=== PATIENT | female | born 1985 | race Caucasian/White ===

== ENCOUNTER → 2016-10-04 | Outpatient (REF) | payer OTHER ==
[~2016-10-04] MED LIST: AMBI5TAB; CIPR500T19
== END ==
LOC: M SFHCLERA 16:48
PROVIDERS: ATTEND Physician Assistant Medical
DX: N30.00 Acute cystitis without hematuria (principal)

== ENCOUNTER → 2017-06-18 | Outpatient (REF) | payer OTHER | LOC: M SFHCLERA 20:23 | DX: R30.0 Dysuria (principal); J02.9 Acute pharyngitis, unspecified ==

== ENCOUNTER → 2017-12-19 | Outpatient (REF) | payer OTHER ==
[2017-12-20 14:41] LABS: CHLAMYDIA DNA AMPLIFICATION NEGATIVE (NEGATIVE); GC DNA AMPLIFICATION NEGATIVE (NEGATIVE)
== END ==
LOC: M SFHCLERA 18:51
DX: R30.0 Dysuria (principal)

== ENCOUNTER → 2018-01-12 | Outpatient (REF) | payer OTHER, MEDICAID ==
[2018-01-12 20:22] LABS: BASO % 0.6 % (0.0-1.0); EOS # 0.2 10^3/uL (0.0-0.50); EOS % 2.7 % (0.0-3.0); HEMATOCRIT 40.8 % (36.0-47.0); HEMOGLOBIN 13.2 g/dl (12.0-15.5); IMMATURE GRANULOCYTE % 0.2 % (0-3.0); LYMPH # 2.7 10^3/uL (1.5-4.5); LYMPH % 42.7 % (24.0-44.0); MEAN CORPUSCULAR HGB CONC 32.4 g/dl (32.0-36.5); MEAN CORPUSCULAR VOLUME 89.7 fl (80.0-96.0); MONO # 0.2 10^3/uL (0.0-0.8); MONO % 3.8 % (0.0-5.0); NEUTROPHILS # 3.2 10^3/uL (1.8-7.7); PLATELET COUNT, AUTOMATED 220 10^3/uL (150-450); RED BLOOD COUNT 4.55 10^6/uL (4.00-5.40); RED CELL DISTRIBUTION WIDTH 13.6 % (11.5-14.5); WHITE BLOOD COUNT 6.3 10^3/uL (4.0-10.0)
[2018-01-12 20:33] LABS: ALBUMIN 3.5 GM/DL (3.2-5.2); ALBUMIN/GLOBULIN RATIO 0.97 (1.00-1.93); ALKALINE PHOSPHATASE 84 U/L (45-117); ALT/SGPT 48 U/L (12-78); ANION GAP 7 MEQ/L (8-16); AST/SGOT 36 U/L (7-37); BILIRUBIN,TOTAL 0.3 MG/DL (0.2-1.0); BLOOD UREA NITROGEN 12 MG/DL (7-18); CALCIUM LEVEL 8.1 MG/DL (8.5-10.1); CARBON DIOXIDE LEVEL 28 MEQ/L (21-32); CHLORIDE LEVEL 105 MEQ/L (98-107); CREATININE FOR GFR 0.77 MG/DL (0.55-1.30); GLOMERULAR FILTRATION RATE > 60.0 (>60); GLUCOSE, FASTING 124 MG/DL (70-100); POTASSIUM SERUM 4.1 MEQ/L (3.5-5.1); SODIUM LEVEL 140 MEQ/L (136-145); TOTAL PROTEIN 7.1 GM/DL (6.4-8.2)
[2018-01-14 10:39] LABS: HEPATITIS B SURFACE ANTIBODY POSITIVE (POSITIVE)
[2018-01-14 10:50] LABS: HEPATITIS B SURFACE ANTIGEN NEGATIVE (NEGATIVE)
[2018-01-14 11:26] LABS: HEPATITIS C VIRUS ABY INDEX > 11.0 INDEX (<0.8)
[2018-01-18 12:24] LABS: HCV RNA NAA QUALITATIVE Positive (Negative)
[2018-01-19 00:11] LABS: HEPATITIS C QUANTITATION 38630 IU/mL (.); HEPATITIS C VIRUS GENOTYPE 3 (.)
== END ==
LOC: M LAB REF 09:53
DX: B17.10 Acute hepatitis C without hepatic coma (principal)
CPT/HCPCS: 80053

== ENCOUNTER → 2019-09-19 | Outpatient (CLI) | payer OTHER | LOC: M LRY 11:33 | PROVIDERS: ATTEND Nurse Practitioner Family | DX: Z36.89 Encounter for other specified antenatal screening (principal); Z53.9 Procedure and treatment not carried out, unspecified reason ==

== ENCOUNTER → 2019-10-04 | Outpatient (CLI) | payer OTHER ==
--- NOTE | 2019-10-05 02:35 | REP ---
REASON: Supervision of other normal . Multiple ultrasonographic images of the gravid uterus show a single living intrauterine gestation in the oblique superior head to maternal right position. The placenta is posterior fundal and not low lying. The subjective amniotic fluid volume is within normal limits. The cervix measures 3.9 cm in length and is closed. Doppler interrogation of the heart shows a heart rate of 147 beats per minute. Evaluation of the maternal adnexal spaces shows no abnormalities. CHART: BPD 3.6 cm = 17 weeks 1 day HC 13.5 cm = 17 weeks 0 days AC 12.1 cm = 17 weeks 5 days FL 2.4 cm = 17 weeks 1 day The estimated weight is 193 grams, which is at the 57th percentile for a 17-week 1-day gestational age. Due to the early gestational age of under 20 weeks, a full anatomical screen could not be performed. IMPRESSION: Single living intrauterine gestation, as described above, with an estimated gestational age of 17 weeks 1 day via composite criteria and an estimated date of delivery of 03/12/2020 by today's exam. anatomical screen exam is recommended at 20 to 22 weeks gestational age. Electronically Signed by Sahil Mcfadden DO 10/05/2019 11:26 A
== END ==
LOC: M LRY 08:50
PROVIDERS: ATTEND Nurse Practitioner Family
DX: Z32.01 Encounter for pregnancy test, result positive (principal); Z3A.00 Weeks of gestation of pregnancy not specified

== ENCOUNTER 2019-12-31 02:50 | Inpatient (IN) | payer OTHER ==
[2019-12-31] MEDS ORDERED: OXYTOCIN 30 UNITS IN 0.9% NaCl 500ML IV BAG (J2590) As Ordered ONE (03:45)
[2019-12-31 03:56] LABS: BASO % 0.2 % (0.0-1.0); EOS # 0.1 10^3/uL (0.0-0.5); EOS % 0.7 % (0.0-3.0); LYMPH # 2.1 10^3/uL (1.5-5.0); LYMPH % 12.7 % (24.0-44.0); MEAN CORPUSCULAR HGB CONC 32.3 g/dl (32.0-36.5); MEAN CORPUSCULAR VOLUME 83.8 fl (80.0-96.0); MONO % 5.9 % (0.0-5.0); NEUTROPHILS # 12.9 10^3/uL (1.5-8.5); NEUTROPHILS % 79.6 % (36.0-66.0); PLATELET COUNT, AUTOMATED 158 10^3/uL (150-450); WHITE BLOOD COUNT 16.2 10^3/uL (4.0-10.0)
[2019-12-31] MEDS ORDERED: IBUPROFEN 600MG TAB As Ordered ONE (04:00)
[2019-12-31] MEDS ORDERED: OXYTOCIN DRIP 30 UNITS in IV 1 EA IV SCH (04:25)
[2019-12-31] MEDS ORDERED: DOCUSATE SODIUM 100 MG CAP PO PRN (04:30)
[2019-12-31] MEDS ORDERED: MEASLES,MUMPS,RUBELLA VACCINE INJ (MMR-II) (90707) SC SCH (04:30)
[2019-12-31] MEDS ORDERED: DIBUCAINE 1% OINTMENT 30GM TOP PRN (04:30)
[2019-12-31] MEDS ORDERED: RHOGAM 300 MCG (1500 IU) INJ (J2790) IM SCH (04:30)
[2019-12-31] MEDS ORDERED: ACETAMINOPHEN 500 MG TAB PO PRN (04:30)
[2019-12-31] MEDS ORDERED: ACETAMINOPHEN TAB 650MG DOSE (2X325MG) PO PRN (04:30)
[2019-12-31] MEDS ORDERED: METHYLERGONOVINE MALEATE 0.2 MG TAB PO PRN (04:30)
[2019-12-31] MEDS ORDERED: IBUPROFEN 800 MG TAB PO PRN (04:30)
[2019-12-31] MEDS ORDERED: IBUPROFEN 600MG TAB PO PRN (04:30)
[2019-12-31] MEDS ORDERED: ANUSOL HC CREAM 30GM TOP PRN (04:30)
[2019-12-31 06:37] LABS: AMPHETAMINES URINE REFLEX NEGATIVE (NEGATIVE); BARBITURATES URINE REFLEX NEGATIVE (NEGATIVE); BENZODIAZEPINES URINE REFLEX NEGATIVE (NEGATIVE); CANNABINOIDS URINE REFLEX NEGATIVE (NEGATIVE); COCAINE METABOLITE URINE REFLE NEGATIVE (NEGATIVE); METHADONE URINE REFLEX NEGATIVE (NEGATIVE); OPIATES URINE REFLEX NEGATIVE (NEGATIVE); PHENCYCLIDINE URINE REFLEX NEGATIVE (NEGATIVE)
[2019-12-31 06:45] VITALS: BP 98/67
[2019-12-31] MEDS ORDERED: PRENATAL VITAMINS CHEWABLE TABLET PO SCH (09:00)
[2019-12-31 11:40] VITALS: BP 151/56
[2019-12-31 16:22] LABS: HIV 1&2 SCREEN CENTAUR NEGATIVE (NEGATIVE)
[2020-01-02 09:42] LABS: HEPATITIS C VIRUS ABY INDEX > 11.0 INDEX (<0.8)
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
== END 2019-12-31 14:05 | disposition home or self-care (01) | DRG 546 ==
LOC: M LDI 02:50 → M OBS 06:32
PROVIDERS: ADMIT Obstetrics & Gynecology; ATTEND Obstetrics & Gynecology
PROC: 0HQ9XZZ Repair Perineum Skin, External Approach (ICD-10-PCS; principal; 2019-12-31)
DX: Z39.0 Encounter for care and examination of mother immediately after delivery (principal); O70.0 First degree perineal laceration during delivery; O34.211 Maternal care for low transverse scar from previous cesarean delivery; Z3A.25 25 weeks gestation of pregnancy

== ENCOUNTER → 2023-12-16 | Outpatient (CLI) | payer OTHER ==
[2023-12-16 11:16] LABS: HEMATOCRIT 39.1 % (36.0-47.0); HEMOGLOBIN 12.8 g/dl (12.0-15.5); MEAN CORPUSCULAR HEMOGLOBIN 26.4 pg (27.0-33.0); MEAN CORPUSCULAR HGB CONC 32.7 g/dl (32.0-36.5); MEAN CORPUSCULAR VOLUME 80.8 fl (80.0-96.0); PLATELET COUNT, AUTOMATED 366 10^3/uL (150-450); RED BLOOD COUNT 4.84 10^6/uL (4.00-5.40); WHITE BLOOD COUNT 6.6 10^3/uL (4.0-10.0)
[2023-12-16 11:26] LABS: APPEARANCE, URINE HAZY (CLEAR); BACTERIA, URINE AUTO 1+ (NEGATIVE); BILIRUBIN, URINE AUTO NEGATIVE (NEGATIVE); BLOOD, URINE BLOOD NEGATIVE (NEGATIVE); COLOR, URINE YELLOW (YELLOW); GLUCOSE, URINE (UA) AUTO NEGATIVE (NEGATIVE); KETONE, URINE AUTO NEGATIVE (NEGATIVE); LEUKOCYTE ESTERASE, URINE AUTO 2+ (NEGATIVE); MUCUS, URINE SMALL (NEGATIVE); NITRITE, URINE AUTO NEGATIVE (NEGATIVE); PROTEIN, URINE AUTO NEGATIVE (NEGATIVE); RBC, URINE AUTO 4 /HPF (0-3); SPECIFIC GRAVITY URINE AUTO 1.016 (1.002-1.035); SQUAMOUS EPITHELIAL CELL UR AU 12 /HPF (0-6); UROBILINOGEN, URINE AUTO 0.2 mg/dL (0.0-2.0); WBC, URINE AUTO 2 /HPF (0-3)
[2023-12-16 12:18] LABS: ANISOCYTOSIS 1+; ATYPICAL LYMPH 3 % (0-5); EOSINOPHILS 4 % (0-3); LYMPHOCYTES 21 % (16-44); MONOCYTES 3 % (0-5); NEUTROPHILS 69 % (28-66); PLATELET ESTIMATE NORMAL (NORMAL); POIKILOCYTOSIS 1+; POLYCHROMASIA 1+
[2023-12-16 13:05] LABS: HEPATITIS B SURFACE ANTIGEN NEGATIVE (NEGATIVE)
[2023-12-16 13:27] LABS: HEPATITIS B CORE ANTIBODY IGM NEGATIVE (NEGATIVE)
[2023-12-16 13:30] LABS: ALBUMIN 3.6 G/DL (3.2-5.2); ALKALINE PHOSPHATASE 84 U/L (46-116); ALT/SGPT 16 U/L (7.0-40); AST/SGOT 18 U/L (<34); BILIRUBIN,TOTAL 0.3 MG/DL (0.3-1.2); BLOOD UREA NITROGEN 11 MG/DL (9-23); CALCIUM LEVEL 9.3 MG/DL (8.5-10.1); CARBON DIOXIDE LEVEL 26 MMOL/L (20-31); CHLORIDE LEVEL 105 MMOL/L (98-107); CREATININE FOR GFR 0.74 MG/DL (0.55-1.30); GLOMERULAR FILTRATION RATE > 60.0 (>60); GLUCOSE, FASTING 72 MG/DL (60-100); POTASSIUM SERUM 4.8 MMOL/L (3.5-5.1); SODIUM LEVEL 136 MMOL/L (136-145); TOTAL PROTEIN 7.8 G/DL (5.7-8.2)
[2023-12-16 14:38] LABS: HEPATITIS C VIRUS ABY INDEX > 11.00 INDEX (<0.8)
[2023-12-17 22:48] LABS: HCV RNA QUANTITATION <15 NOT DETECTED IU/mL (NOT DETECTED); HCV RNA log10 <1.18 NOT DETECTED Log IU/mL (NOT DETECTED)
== END ==
LOC: M LAB 10:08
PROVIDERS: ATTEND Nurse Practitioner Adult Health
DX: Z00.8 Encounter for other general examination (principal); F11.21 Opioid dependence, in remission; F41.9 Anxiety disorder, unspecified

== ENCOUNTER 2024-04-18 18:04 | Emergency (ER) | payer OTHER ==
[~2024-04-18] VITALS: Ht 170.2 cm; Wt 95.7 kg
[2024-04-18 18:07] VITALS: BP 159/88; TEMP 97.5; O2SAT 99
[2024-04-18] MEDS ORDERED: BUPR8SUB SL (18:14)
[2024-04-18] MEDS ORDERED: BUPR150T12 (18:14)
[2024-04-18] MEDS ORDERED: GABA-1490 (18:14)
== END 2024-04-18 22:20 | disposition left against medical advice (07) ==
LOC: M ED 18:04
DX: Z53.21 Procedure and treatment not carried out due to patient leaving prior to being seen by health care provider (principal)

== ENCOUNTER → 2024-04-24 | Outpatient (CLI) | payer OTHER ==
[~2024-04-24] MED LIST changes: +BUPR150T12; +BUPR8SUB SL; +GABA-1490
[2024-04-24 12:37] LABS: HEMATOCRIT 37.3 % (36.0-47.0); MEAN CORPUSCULAR HEMOGLOBIN 26.4 pg (27.0-33.0); MEAN CORPUSCULAR HGB CONC 32.2 g/dl (32.0-36.5); MEAN CORPUSCULAR VOLUME 82.2 fl (80.0-96.0); PLATELET COUNT, AUTOMATED 232 10^3/uL (150-450); RED BLOOD COUNT 4.54 10^6/uL (4.00-5.40); WHITE BLOOD COUNT 4.3 10^3/uL (4.0-10.0)
[2024-04-24 13:27] LABS: ALBUMIN 3.5 G/DL (3.2-5.2); ALKALINE PHOSPHATASE 60 U/L (35-104); ALT/SGPT 20 U/L (7.0-40); AST/SGOT 16 U/L (<34); BILIRUBIN,TOTAL 0.2 MG/DL (0.3-1.2); BLOOD UREA NITROGEN 13 MG/DL (9-23); CALCIUM LEVEL 8.3 MG/DL (8.5-10.1); CARBON DIOXIDE LEVEL 25 MMOL/L (20-31); CHLORIDE LEVEL 106 MMOL/L (98-107); CREATININE FOR GFR 0.74 MG/DL (0.55-1.30); GLOMERULAR FILTRATION RATE > 60.0 (>60); GLUCOSE, FASTING 107 MG/DL (60-100); SODIUM LEVEL 138 MMOL/L (136-145); TOTAL PROTEIN 6.8 G/DL (5.7-8.2)
[2024-04-24 13:29] LABS: FREE T4 1.04 NG/DL (0.89-1.76); THYROID STIMULATING HORMONE 1.405 uIU/ML (0.55-4.78)
[2024-04-24 13:35] LABS: HEMOGLOBIN A1c 5.5 % (4.0-6.0)
== END ==
LOC: M LAB 11:41
PROVIDERS: ATTEND Nurse Practitioner Family
DX: R63.1 Polydipsia (principal); F11.20 Opioid dependence, uncomplicated; Z13.1 Encounter for screening for diabetes mellitus

== ENCOUNTER → 2024-06-24 | Outpatient (CLI) | payer OTHER ==
[2024-06-24 11:33] LABS: HEMOGLOBIN 13.6 g/dl (12.0-15.5); MEAN CORPUSCULAR HEMOGLOBIN 26.8 pg (27.0-33.0); MEAN CORPUSCULAR HGB CONC 33.2 g/dl (32.0-36.5); MEAN CORPUSCULAR VOLUME 80.9 fl (80.0-96.0); PLATELET COUNT, AUTOMATED 239 10^3/uL (150-450); RED BLOOD COUNT 5.07 10^6/uL (4.00-5.40); WHITE BLOOD COUNT 4.8 10^3/uL (4.0-10.0)
[2024-06-24 12:12] LABS: HEMOGLOBIN A1c 4.8 % (4.0-6.0)
[2024-06-24 12:33] LABS: ALBUMIN 4.1 G/DL (3.2-5.2); ALKALINE PHOSPHATASE 79 U/L (35-104); ALT/SGPT 15 U/L (7.0-40); AST/SGOT 18 U/L (<34); BILIRUBIN,TOTAL 0.8 MG/DL (0.3-1.2); BLOOD UREA NITROGEN 11 MG/DL (9-23); CALCIUM LEVEL 9.5 MG/DL (8.5-10.1); CARBON DIOXIDE LEVEL 25 MMOL/L (20-31); CHLORIDE LEVEL 107 MMOL/L (98-107); CHOLESTEROL LEVEL 188 MG/DL (<200); CREATININE FOR GFR 0.74 MG/DL (0.55-1.30); FREE T4 1.21 NG/DL (0.89-1.76); GLOMERULAR FILTRATION RATE > 60.0 (>60); GLUCOSE, FASTING 94 MG/DL (60-100); LDL CHOLESTEROL 127.8 MG/DL (<100); POTASSIUM SERUM 4.3 MMOL/L (3.5-5.1); SODIUM LEVEL 140 MMOL/L (136-145); THYROID STIMULATING HORMONE 1.439 uIU/ML (0.55-4.78); TOTAL PROTEIN 7.7 G/DL (5.7-8.2); TRIGLYCERIDES LEVEL 66 MG/DL (<150)
== END ==
LOC: M LAB 10:18
DX: F41.0 Panic disorder [episodic paroxysmal anxiety] (principal)

== ENCOUNTER → 2024-10-26 | Outpatient (CLI) | payer OTHER ==
[2024-10-26 13:17] LABS: HCG, SERUM QUALITATIVE NEGATIVE (NEGATIVE); HIV 1&2 SCREEN NEGATIVE (NEGATIVE)
[2024-10-26 13:33] LABS: HEPATITIS C VIRUS ABY INDEX > 11.00 INDEX (<0.8)
[2024-10-26 13:50] LABS: GC DNA AMPLIFICATION NEGATIVE (NEGATIVE)
[2024-10-28 16:28] LABS: HCV RNA QUANTITATION <15 NOT DETECTED IU/mL (NOT DETECTED); HCV RNA log10 <1.18 NOT DETECTED Log IU/mL (NOT DETECTED)
== END ==
LOC: M LAB 10:24
PROVIDERS: ATTEND Family Medicine
DX: F11.20 Opioid dependence, uncomplicated (principal)